=== PATIENT | female | born 1935 | race Caucasian/White ===

== ENCOUNTER 2017-01-27 09:45 | Day surgery (SDC) | payer OTHER ==
[~2017-01-27] VITALS: Ht 157.5 cm; Wt 60.3 kg
[2017-01-27] MEDS ORDERED: fentaNYL CITRATE 250 MCG/5 ML AMP IV ONE (11:45)
[2017-01-27] MEDS ORDERED: NS IRRIG SOLN 1000 ML IR ONE (11:45)
[2017-01-27] MEDS ORDERED: LR 1,000 ML IV.SOLN IV ONE (11:45)
[2017-01-27] MEDS ORDERED: PROPOFOL 200MG/ 20ML VIAL (DIPRIVAN) IV ONE (11:45)
[2017-01-27] MEDS ORDERED: MIDAZOLAM HCL 5 MG/5 ML VIAL IVP ONE (11:45)
[2017-01-27] MEDS ORDERED: SEVOFLURANE 15 MIN GAS INH ONE (11:45)
[2017-01-27] MEDS ORDERED: ROCURONIUM BROMIDE 10 MG/ML (ZEMURON) IV ONE (11:45)
[2017-01-27] MEDS ORDERED: BUPIVACAINE /EPINEPHRINE/PF 0.25% 30 ML VIAL INJ ONE (11:45)
[2017-01-27] MEDS ORDERED: CLINDAMYCIN PHOSPHATE 900 mg/50mL D5W IV ONE (11:45)
[2017-01-27] MEDS ORDERED: POLYMYXIN 500,000/BACIT.10,000 UNITS in NS IRR 1 L IR ONE (12:18)
[2017-01-27] MEDS ORDERED: LR 1,000 ML IV SCH (12:35)
[2017-01-27] MEDS ORDERED: MORPHINE 2 MG/ML INJ. SYRINGE IVP PRN ×3 (12:45)
[2017-01-27] MEDS ORDERED: METOCLOPRAMIDE HCL 10 MG/2 ML VIAL IVP PRN (12:45)
[2017-01-27] MEDS ORDERED: MORPHINE 4 MG/ML INJ. SYRINGE ONE (13:54)
[2017-01-27 16:00] VITALS: BP_SYST 148
[2017-01-27 16:22] VITALS: BP_SYST 137
[2017-01-27] MEDS ORDERED: ATEN-41 PO (17:16)
[2017-01-27] MEDS ORDERED: LORA1TAB PO (17:16)
[2017-01-27] MEDS ORDERED: TRAZ-123 PO (17:16)
[2017-01-27] MEDS ORDERED: ASPI81TA2 PO (17:16)
[2017-01-27] MEDS ORDERED: LEVO100T9 PO (17:16)
[2017-01-27] MEDS ORDERED: HYDROcodone/ACETAMIN 5-325 MG TAB (NORCO/ VICODIN) PO PRN (17:30)
[2017-01-27] MEDS ORDERED: LORazepam 1 MG TABLET PO PRN (17:30)
[2017-01-27] MEDS ORDERED: ONDANSETRON HCL 4 MG/2 ML VIAL IVP PRN (17:30)
[2017-01-27] MEDS: HYDROcodone/ACETAMIN 5-325 MG TAB (NORCO/ VICODIN) PO PRN (20:27)
[2017-01-27 20:30] VITALS: BP_SYST 150
[2017-01-27] MEDS ORDERED: traZODone HCL 50 MG TABLET (DESYREL) PO SCH (21:00)
[2017-01-28 00:08] VITALS: BP_SYST 123
[2017-01-28] MEDS: HYDROcodone/ACETAMIN 5-325 MG TAB (NORCO/ VICODIN) PO PRN ×2 (02:38→08:30)
[2017-01-28 05:59] VITALS: BP_SYST 127
[2017-01-28] MEDS ORDERED: LEVOTHYROXINE SODIUM 0.1 MG TABLET PO SCH ×2 (07:00→09:00)
[2017-01-28 08:00] VITALS: BP_SYST 119
[2017-01-28] MEDS ORDERED: ASPIRIN 81 MG TAB.CHEW PO SCH (09:00)
[2017-01-28] MEDS ORDERED: ATENOLOL 25 MG TABLET(TENORMIN) PO SCH (09:00)
[2017-01-28 09:53] VITALS: BP_SYST 119
== END 2017-01-28 10:50 | disposition home or self-care (01) ==
LOC: SDS 09:45 → SMU 09:45 → SDS 01-28 10:50
PROVIDERS: ATTEND Orthopaedic Surgery
DX: S52.025A Nondisplaced fracture of olecranon process without intraarticular extension of left ulna, initial encounter for closed fracture (principal); S52.532A Colles' fracture of left radius, initial encounter for closed fracture; W19.XXXA Unspecified fall, initial encounter; Y93.9 Activity, unspecified; Y92.89 Other specified places as the place of occurrence of the external cause; Y99.9 Unspecified external cause status; Z87.891 Personal history of nicotine dependence; Z88.0 Allergy status to penicillin; Z88.2 Allergy status to sulfonamides; Z88.8 Allergy status to other drugs, medicaments and biological substances; I10 Essential (primary) hypertension; D64.9 Anemia, unspecified; E03.9 Hypothyroidism, unspecified; M19.90 Unspecified osteoarthritis, unspecified site; G62.9 Polyneuropathy, unspecified
CPT/HCPCS: 24685; 73502; 73552; 76000; 87081; A4565; C1713; J2270; J7120; J2250; J2704; J3010; J3490